=== PATIENT | female | born 1980 | race Caucasian/White ===

== ENCOUNTER 2018-06-30 15:11 | Emergency (ER) | payer MEDICARE ==
[~2018-06-30] VITALS: Ht 170.2 cm; Wt 60.7 kg
[2018-06-30 15:53] LABS: BASOPHILS # (AUTO) 0.03 x10^3/uL (0-0.1); BASOPHILS % (AUTO) 0 % (0-1); EOSINOPHILS # (AUTO) 0.09 x10^3/uL (0-0.4); EOSINOPHILS % (AUTO) 1 % (1-7); LYMPHOCYTES # (AUTO) 2.67 x10^3/uL (1-3.4); LYMPHOCYTES % (AUTO) 31 % (22-44); MD NO; MEAN CORPUSCULAR HEMOGLOBIN 33.7 pg (27.0-34.8); MEAN CORPUSCULAR HGB CONC 33.6 g/dL (32.4-35.8); MEAN CORPUSCULAR VOLUME 100.5 fL (80-100); MEAN PLATELET VOLUME 8.8 fL (7.4-10.4); MONOCYTES # (AUTO) 0.59 x10^3/uL (0.2-0.8); MONOCYTES % (AUTO) 7 % (2-9); NEUTROPHILS % (AUTO) 61 % (42-75); PLATELET COUNT 318 x10^3/uL (130-400); RED BLOOD COUNT 4.47 x10^6/uL (3.82-5.3); RED CELL DISTRIBUTION WIDTH 12.2 % (9.6-15.2)
[2018-06-30 15:54] LABS: ALBUMIN 4.2 g/dL (3.4-5.0); ANION GAP 6 mmol/L (5-15); CHLORIDE 113 mmol/L (98-107)
[2018-06-30 15:59] LABS: ALANINE AMINOTRANSFERASE 22 U/L (12-78); ALKALINE PHOSPHATASE 79 U/L (45-117); BILIRUBIN,TOTAL 0.4 mg/dL (0.2-1.0); CREATININE 0.72 mg/dL (0.55-1.02); TOTAL PROTEIN 7.8 g/dL (6.4-8.2); TROPONIN I < 0.015 ng/mL (0.000-0.045)
--- NOTE | 2018-06-30 16:02 | NUR ---
PT C/O NAUSEA AND DIZZINESS X 1 WEEK, WORSE SINCE 299. PT REPORTS INTERMITTENT SIMILAR EPISODES SINCE FEBRUARY. APPEARS WELL. REPORTS RECENT MED CHANGES. HR 100 PIV DEFERRED BASED ON EXAM
--- NOTE | 2018-06-30 16:17 | NUR ---
PROVIDER MADE AWARE OF REPORTED HX OF HYPOTHYROID PLACED ON [employer] UPDATED ON POC CALL CASTILLO IN HAND SIDE RAILS UP
[2018-06-30 16:48] LABS: FREE T4 (FREE THYROXINE) 0.89 ng/dL (0.76-1.46); THYROID STIMULATING HORMONE 1.34 mIU/L (0.358-3.740)
[2018-06-30 17:33] LABS: CULTURE INDICATED? NO; MICROSCOPIC NOT IND
[2018-06-30 18:05] VITALS: BP 107/72
== END 2018-06-30 18:26 | disposition home or self-care (01) ==
LOC: ED 17:16
DX: R42 Dizziness and giddiness (principal); R00.2 Palpitations; G40.909 Epilepsy, unspecified, not intractable, without status epilepticus; F31.9 Bipolar disorder, unspecified; E03.9 Hypothyroidism, unspecified
CPT/HCPCS: 36415; 71045; 80053; 81003; 84439; 84443; 84484; 84703; 85025; 93005; 99284

== ENCOUNTER 2018-08-08 18:37 | Emergency (ER) | payer MEDICARE ==
[~2018-08-08] VITALS: Ht 170.2 cm; Wt 58.0 kg
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
--- NOTE | 2018-08-08 19:41 | NUR ---
PT CALM, RESTING IN SECURED ROOM WITH SITTER AT BS. VSS. NO NEEDS EXPRESSED. AWAITNG TELEPSYCH EVAL.
[2018-08-08 20:09] LABS: AMPHETAMINE SCREEN, URINE Negative (Negative); BARBITURATE SCREEN, URINE Negative (Negative); BENZODIAZEPINE SCREEN, URINE Negative (Negative); CANNABINOID SCREEN, URINE Negative (Negative); COCAINE SCREEN, URINE Negative (Negative); METHADONE SCREEN, URINE Negative (Negative); OPIATE SCREEN, URINE Negative (Negative)
--- NOTE | 2018-08-08 20:39 | NUR ---
PT CALM, RESTING IN SECURED ROOM WITH SITTER AT BS. VSS. WATER PROVIDED PER REQUEST. NO OTHER NEEDS EXPRESSED. AWAITNG TELEPSYCH EVAL.
--- NOTE | 2018-08-08 21:06 | NUR ---
TELEPSYCH INITIATED. [id number] BOT PLACED AT BS.
--- NOTE | 2018-08-08 21:08 | NUR ---
PT CALM, RESTING IN SECURED ROOM WITH SITTER AT BS. VSS. NO NEEDS EXPRESSED. AWAITNG TELEPSYCH EVAL.
--- NOTE | 2018-08-08 21:46 | NUR ---
THIS RN SPOKE WITH PT'S ARTURO . PER PT, OK TO GIVE UPDATES TO AT THIS TIME. PT GIVEN 'S PHONE NUMBER. PT CALM, RESTING IN SECURED ROOM WITH SITTER AT BS. VSS. NO NEEDS EXPRESSED. AWAITNG TELEPSYCH EVAL.
--- NOTE | 2018-08-08 22:30 | NUR ---
PT WITH SITTER AT BEDSIDE IN NO DISTRTESS AND VSS
[2018-08-08] MEDS ORDERED: TEMAZEPAM 15 MG CAPSULE PO PRN (23:00)
[2018-08-08] MEDS ORDERED: ONDANSETRON ODT 4 MG PO PRN (23:00)
[2018-08-08] MEDS ORDERED: IBUPROFEN 600 MG TABLET PO PRN (23:00)
[2018-08-08 23:18] VITALS: BP 122/74
--- NOTE | 2018-08-08 23:19 | NUR ---
PT WITH NO DISTRESS AND SITTER AT BEDSIDE.
--- NOTE | 2018-08-08 23:44 | NUR ---
REPORT GIVEN. PT READY FOR TRANSPOER
[2018-08-09] MEDS ORDERED: CLON0.5T11 PO (01:34)
== END 2018-08-08 23:49 | disposition home or self-care (01) ==
LOC: ED 20:31 → UNDOADMIN 21:11 → EDIP 21:11 → UNDODISIN 23:47
DX: T39.1X2A Poisoning by 4-Aminophenol derivatives, intentional self-harm, initial encounter (principal); Y92.89 Other specified places as the place of occurrence of the external cause; Z72.9 Problem related to lifestyle, unspecified
CPT/HCPCS: 36415; 80307; 93005; 99285